=== PATIENT | male | born 1985 | race Caucasian/White ===

== ENCOUNTER 2016-05-25 07:44 | Emergency (ER) | payer OTHER ==
--- NOTE | 2016-05-25 07:53 | EDPHY ---
H & P Stated Complaint: dizzy, lightheaded Source: Patient - Personal History Current Tetanus Diphtheria and Acellular Pertussis (TDAP): Yes - Medical/Surgical History Hx Asthma: No Hx Chronic Respiratory Disease: No Hx Diabetes: No Hx Cardiac Disease: No Hx Renal Disease: No Hx Cirrhosis: No Hx Alcoholism: No Hx HIV/AIDS: No Hx Splenectomy or Spleen Trauma: No Other PMH: denies - Social History Smoking Status: Never smoked HPI/ROS: HPI CHIEF COMPLAINT: Nausea, lightheadedness, anxiety after smoking pot and doing edibles HISTORY OF PRESENT ILLNESS: This patient 30-year-old male denies having any significant medical history or surgical history presents emergency room by private vehicle feeling very anxious with fast heart rate. States he is having anxiety attack. Tells me last night he was a work he smoked marijuana and also talks about a bolus this caused him to get cold nauseous. Symptoms got progressively worse got very anxious decided come to the emergency room. Upon arrival here to the emergency room the patient is very anxious however noted to be 130s, he shaking, states his hands are numb. He is hyperventilating. Past Medical History: Denies medical history Past Surgical History: Denies surgical history Social History: denies tobacco or alcohol admits to doing marijuana able and smoking marijuana all last night Family History: Noncontributory ROS REVIEW OF SYSTEMS: A comprehensive 10 point review of systems is otherwise negative aside from elements mentioned in the history of present illness. Exam Constitutional shaking, anxious, triage nursing summary reviewed, vital signs reviewed, awake/alert. Eyes normal conjunctivae and sclera, EOMI, PERRLA. HENT normal inspection, atraumatic, moist mucus membranes, no epistaxis, neck supple/ no meningismus, no raccoon eyes. Respiratory hyperventilating, normal breath sounds, no respiratory distress, no wheezing. Cardiovascular tachycardic, regular rhythm, no murmur, no edema, distal pulses normal. Gastrointestinal soft, non-tender, no rebound, no guarding, normal bowel sounds, no distension, no pulsatile mass. Genitourinary no CVA tenderness. Musculoskeletal no midline vertebral tenderness, full range of motion, no calf swelling, no tenderness of extremities, no meningismus, good pulses, neurovascularly intact. Skin pink, warm, & dry, no rash, skin atraumatic. Neurologic awake, alert and oriented x 3, AAOx3, moves all 4 extremities equally, motor intact, sensory intact, CN II-XII intact, normal cerebellar, normal vision, normal speech. Psychiatric normal mood/affect. Heme/Lymph/Immune no lymphadenopathy. Differential Diagnosis: includes but is not limited to in a particular order acute anxiety attack, panic attack, marijuana intoxication, electrolyte disturbance, dehydration Medical Decision Making: Plan for this patient full cardiac cath tech, IV establishment IV fluid bolus normal saline, IV Ativan for anxiety and re-asses Re-evaluation: Patient signed over to Dr. Novoa at 815 Shift change. (Gene Brower) Constitutional: Initial Vital Signs Temperature (C) 36.5 C 05/25/16 07:47 Heart Rate 128 H 05/25/16 07:47 Respiratory Rate 20 05/25/16 07:47 Blood Pressure 130/70 H 05/25/16 07:47 O2 Sat (%) 100 05/25/16 07:47 O2 Delivery Mode Room Air O2 (L/minute) 2 Allergies/Adverse Reactions: No Known Allergies Allergy (Unverified 03/19/13 11:09) Home Medications: Medication Instructions Recorded NO HOME MEDS 03/19/13 Medical Decision Making ED Course/Re-evaluation: 9:15 a.m. on my evaluation the patient is calm and cooperative. Vital signs are stable. He is feeling much better. He is eager to go home. We will discharge him at this time. (Rocky Novoa) Differential Diagnosis: Partial list of the Differential diagnosis considered include but were not limited to; anxiety, cannabis abuse, allergic reaction and although unlikely based on the history and physical exam, I also considered infection, psychosis, head injury. I discussed these differential diagnoses and the plan with the patient as well as the usual and expected course. The patient understands that the diagnosis is provisional and that in medicine we are not always correct and that further workup is often warranted. Usual and customary warnings were given. All of the patient's questions were answered. The patient was instructed to return to the emergency department should the symptoms at all worsen or return, otherwise to followup with the physician as we discussed. ( Rocky Novoa) - Data Points Laboratory Results: Laboratory Results 05/25/16 08:00 05/25/16 08:00 05/25/16 05/25/16 08:00 08:00 WBC 9.37 10^3/uL 10^3/uL (3.80-9.50) RBC 5.79 10^6/uL 10^6/uL (4.40-6.38) Hgb 16.5 g/dL g/dL (13.7-17.5) Hct 47.6 % % (40.0-51.0) MCV 82.2 fL fL (81.5-99.8) MCH 28.5 pg pg (27.9-34.1) MCHC 34.7 g/dL g/dL (32.4-36.7) RDW 12.7 % % (11.5-15.2) Plt Count 274 10^3/uL 10^3/uL (150-400) MPV 9.1 fL fL (8.7-11.7) Neut % (Auto) 65.2 % % (39.3-74.2) Lymph % (Auto) 24.1 % % (15.0-45.0) [place] % (Auto) 9.7 % % (4.5-13.0) Eos % (Auto) 0.6 % % (0.6-7.6) Baso % (Auto) 0.2 % L % (0.3-1.7) Nucleat RBC Rel Count 0.0 % % (0.0-0.2) Absolute Neuts (auto) 6.10 10^3/uL 10^3/uL (1.70-6.50) Absolute Lymphs (auto) 2.26 10^3/uL 10^3/uL (1.00-3.00) Absolute Monos (auto) 0.91 10^3/uL H 10^3/uL (0.30-0.80) Absolute Eos (auto) 0.06 10^3/uL 10^3/uL (0.03-0.40) Absolute Basos (auto) 0.02 10^3/uL 10^3/uL (0.02-0.10) Absolute Nucleated RBC 0.00 10^3/uL 10^3/uL (0-0.01) Immature Gran % 0.2 % % (0.0-1.1) Immature Gran # 0.02 10^3/uL 10^3/uL (0.00-0.10) Sodium 141 mEq/L mEq/L (134-144) Potassium 3.5 mEq/L mEq/L (3.5-5.2) Chloride 105 mEq/L mEq/L (97-110) Carbon Dioxide 18 mEq/l L mEq/l (22-31) Anion Gap 18 mEq/L H mEq/L (8-16) BUN 15 mg/dL mg/dL (7-23) Creatinine 0.8 mg/dL mg/dL (0.7-1.3) Estimated GFR > 60 Glucose 121 mg/dL H mg/dL (70-100) Calcium 9.3 mg/dL mg/dL (8.5-10.4) Medications Given: Discontinued Medications Sodium Chloride (Ns) 2,000 mls @ 0 mls/hr IV ONCE ONE PRN Reason: Wide Open Stop: 05/25/16 07:57 Last Admin: 05/25/16 08:10 Dose: 2,000 mls Lorazepam (Ativan Injection) 1 mg IVP EDNOW ONE Stop: 05/25/16 07:58 Last Admin: 05/25/16 08:09 Dose: 1 mg Departure - Departure Disposition: Home, Routine, Self-Care Clinical Impression: Anxiety Marijuana intoxication Qualifiers: Complication of substance-induced condition: uncomplicated Qualified Code(s): F12.920 - Cannabis use, unspecified with intoxication, uncomplicated Condition: Good Instructions: Cannabis Abuse (ED), Anxiety (ED) Referrals: NONE *PRIMARY CARE P,. [Primary Care Provider] - As per Instructions Rachelle Flores MD [Medical Doctor] - As per Instructions
[2016-05-25] MEDS ORDERED: NS 2,000 ML IV ONE (07:56)
[2016-05-25] MEDS ORDERED: LORazepam 2 MG/ML INJ IVP ONE (07:57)
[2016-05-25 08:10] LABS: % IMMATURE GRANULYOCYTES 0.2 % (0.0-1.1); ABSOLUTE IMMATURE GRANULOCYTES 0.02 10^3/uL (0.00-0.10); ADD DIFF? NO; ADD MORPH? NO; ADD SCAN? NO; ATYPICAL LYMPHOCYTE FLAG 10 (0-99); FRAGMENT RBC FLAG 0 (0-99); HEMATOCRIT 47.6 % (40.0-51.0); HEMOGLOBIN 16.5 g/dL (13.7-17.5); LEFT SHIFT FLG 0 (0-99); LIPEMIA HEMOLYSIS FLAG 90 (0-99); MEAN CELL HEMOGLOBIN 28.5 pg (27.9-34.1); MEAN CELL HEMOGLOBIN CONCENTR. 34.7 g/dL (32.4-36.7); MEAN CELL VOLUME 82.2 fL (81.5-99.8); MEAN PLATELET VOLUME 9.1 fL (8.7-11.7); PLATELET CLUMPS FLAG 10 (0-99); PLATELET COUNT 274 10^3/uL (150-400); RED BLOOD CELL COUNT 5.79 10^6/uL (4.40-6.38); RED CELL DISTRIBUTION WIDTH 12.7 % (11.5-15.2)
[2016-05-25 08:34] LABS: ANION GAP 18 mEq/L (8-16); CALCIUM 9.3 mg/dL (8.5-10.4); CARBON DIOXIDE 18 mEq/l (22-31); CHLORIDE 105 mEq/L (97-110); CREATININE 0.8 mg/dL (0.7-1.3); GLOMERULAR FILTRATION RATE > 60; GLUCOSE 121 mg/dL (70-100); POTASSIUM 3.5 mEq/L (3.5-5.2); SODIUM 141 mEq/L (134-144)
[2016-05-25 09:42] VITALS: BP 103/56; PULSE 94; RESP 18; TEMP 98.6; O2SAT 96
== END 2016-05-25 09:40 | disposition home or self-care (01) ==
DX: F41.9 Anxiety disorder, unspecified (principal); F12.920 Cannabis use, unspecified with intoxication, uncomplicated
CPT/HCPCS: 96374; J2060